=== PATIENT | female | born 1995 | race Hispanic/Latino ===

== ENCOUNTER 2018-01-01 01:44 | Emergency (ER) | payer SELFPAY ==
--- NOTE | 2018-01-01 02:56 | ED PDOC ---
HPI: Psych/Substance Abuse Time Seen by Provider: 01/01/18 01:59 Chief Complaint (Nursing): Alcohol Ingestion Chief Complaint (Provider): Alcohol Ingestion History Per: Patient History/Exam Limitations: no limitations Onset/Duration Of Symptoms: Hrs Current Symptoms Are (Timing): Still Present Suicide/Self Injury Attempted (Context): None Modifying Factor(s): Alcohol Additional Complaint(s): 22 year old female brought to the ED via [place] [facility] for evaluation for public alcohol intoxication in a [place] bar. Patient is a good historian with no caveats. Denies any other medical complaint. Patient is ready to go home at this time. Past Medical History Reviewed: Historical Data, Nursing Documentation, Vital Signs Vital Signs: Last Vital Signs Temp 98.0 F 01/01/18 01:56 Pulse 113 H 01/01/18 01:56 Resp 16 01/01/18 01:56 BP 127/81 01/01/18 01:56 Pulse Ox 98 01/01/18 01:56 - Medical History PMH: No Chronic Diseases - Surgical History Surgical History: No Surg Hx - Family History Family History: States: No Known Family Hx - Allergies Allergies/Adverse Reactions: Allergies Allergy/AdvReac Type Severity Reaction Status Date / Time No Known Allergies Allergy Verified 01/01/18 01:59 Review of Systems ROS Statement: Except As Marked, All Systems Reviewed And Found Negative Psych: Positive for: Other (ETOH Intoxication ) Physical Exam - Reviewed Nursing Documentation Reviewed: Yes Vital Signs Reviewed: Yes - Physical Exam Appears: Positive for: Non-toxic, No Acute Distress Head Exam: Positive for: ATRAUMATIC, NORMOCEPHALIC Skin: Positive for: Normal Color, Warm, Dry Eye Exam: Positive for: EOMI, Normal appearance, PERRL ENT: Positive for: Normal ENT Inspection Neck: Positive for: Normal, Painless ROM, Supple Cardiovascular/Chest: Positive for: Regular Rate, Rhythm. Negative for: Murmur Respiratory: Positive for: Normal Breath Sounds. Negative for: Respiratory Distress Gastrointestinal/Abdominal: Positive for: Normal Exam, Soft. Negative for: Tenderness Back: Positive for: Normal Inspection Extremity: Positive for: Normal ROM. Negative for: Pedal Edema, Deformity Neurologic/Psych: Positive for: Alert, Oriented, Gait (steady), Other (good speech fluidity.). Negative for: Motor/Sensory Deficits - ECG O2 Sat by Pulse Oximetry: 98 (RA) Pulse Ox Interpretation: Normal Medical Decision Making Medical Decision Making: -- Patient is currently pending sobriety. -- Upon re-evaluation, patient appears to be clinically sober in no acute distress, speaking in full sentences, and walks with a steady gait. Patient is now ready for discharge. Scribe Attestation: Documented by Pete Manzo, acting as a scribe for Dr. Jeanne Moses MD. Provider Scribe Attestation: All medical record entries made by the Scribe were at my direction and personally dictated by me. I have reviewed the chart and agree that the record accurately reflects my personal performance of the history, physical exam, medical decision making, and the department course for this patient. I have also personally directed, reviewed, and agree with the discharge instructions and disposition. Disposition - Clinical Impression Clinical Impression: Alcohol abuse with intoxication - Patient ED Disposition Is Patient to be Admitted: No Counseled Patient/Family Regarding: Studies Performed, Diagnosis - Disposition Referrals: [facility] [Outside] Disposition: Routine/Home Disposition Time: 02:50 Condition: GOOD Instructions: Alcohol Abuse and Alcoholism (DC)
[2018-01-01 02:59] VITALS: BP 126/76; PULSE 91; RESP 20; TEMP 98.4
[2018-01-01 03:08] VITALS: O2SAT 98
== END 2018-01-01 03:01 | disposition home or self-care (01) ==
LOC: H.ER 01:44
DX: F10.129 Alcohol abuse with intoxication, unspecified (principal)